=== PATIENT | male | born 1950 | race Caucasian/White ===

== ENCOUNTER 2016-05-26 06:33 | Day surgery (SDC) | payer OTHER ==
[~2016-05-26 06:33] MED LIST: CLARITIN10 M6 PO; LISINOPRIL-HCT1 EAC1 PO; METFORMIN; NORVASC10 M2 PO
[2016-05-26 07:03] LABS: BASO % 0.4 % (0-2); EOS % 1.7 % (0-7); EOSINOPHIL ABSOLUTE COUNT 0.1 tho/cmm (0.0-0.7); HGB-HEMOGLOBIN 15.7 gm/dl (13.5-17.0); IMMATURE GRANULOCYTES ABSOLUTE 0.02 tho/cmm (0-0.03); IMMATURE GRANULOCYTES PERCENT 0.3 % (0-0.3); LYMPH % 38.1 % (20-45); MCH (MEAN CORPUSCULAR HGB) 34.7 pg (28.0-32.0); MCHC MEAN CORPUSCULAR HGB CONC 36.5 % (32.0-36.0); MCV (MEAN CELL VOLUME) 94.9 fl (82.0-96.0); MEAN PLATELET VOLUME 10.6 cmc (9.4-12.4); MONO % 8.4 % (0-12); MONOCYTE ABSOLUTE COUNT 0.7 tho/cmm (0.0-1.2); NEUTROPHILS % 51.1 % (40-80); PLATELET COUNT 252 tho/cmm (150-450); RED BLOOD COUNT 4.53 mil/cmm (4.40-5.70); WHITE BLOOD COUNT 7.8 tho/cmm (4.0-10.0)
[2016-05-26 07:10] LABS: INR 0.9 INR (0.9-1.1); PROTHROMBIN TIME 9.9 SECONDS (9.0-13.6)
== END 2016-05-26 13:30 ==
LOC: CTSCAN 06:33 → SHSB 06:34
PROVIDERS: Radiology Diagnostic Radiology
PROC: 0BBC3ZX Excision of Right Upper Lung Lobe, Percutaneous Approach, Diagnostic (ICD-10-PCS; principal; 2016-05-26)
DX: J98.4 Other disorders of lung (principal); J95.811 Postprocedural pneumothorax; I10 Essential (primary) hypertension; E11.9 Type 2 diabetes mellitus without complications; Z79.84 Long term (current) use of oral hypoglycemic drugs; Z79.899 Other long term (current) drug therapy; Z87.891 Personal history of nicotine dependence; Z85.828 Personal history of other malignant neoplasm of skin; Z90.49 Acquired absence of other specified parts of digestive tract; Z98.890 Other specified postprocedural states
CPT/HCPCS: J3010; J7030